=== PATIENT | female | born 1935 | race Caucasian/White ===

== ENCOUNTER 2018-09-12 18:40 | Emergency (ER) | payer OTHER ==
[~2018-09-12] VITALS: Ht 157.5 cm; Wt 81.7 kg
[~2018-09-12 18:40] MED LIST: ATEN25 PO; Aspirin EC81 MG PO; CALCAVITDA PO; CHOL10002 PO; Cyclobenzaprine5 MG PO; FISH1000 PO; LOVA40 PO; Lovastatin20 MG PO; POLY17UD PO; Synthroid25 MCG; TRIHYD253B PO; TRIHYD5075 PO
--- NOTE | 2018-09-12 21:53 | NUR ---
FROM ER TO [facility] ADMISSION STARTED FOR PROCEDURE. AT BEDSIDE
--- NOTE | 2018-09-12 22:03 | NUR ---
09/12/18 2203 Manish Swann PATIENT DETERMINED TO BE ASA APPROPRIATE FOR PROPOFOL SEDATION PRIOR TO START OF PROCEDURE BY DR. Eliane Tyson Placed3-LEAD EKG REVIEWED WITH PHYSICIAN PRIOR TO START OF PROCEDURE.Patient to ENDO 1History, Chart, Medications and Allergies reviewed before start of procedure.MONITOR INTACT WITH CONTINUOUS PULSE OXIMETRY AND INTERMITTENT BP.LUNGS CLEAR T/O TO AUSCULTATION.O2 VIA N/C INTACT THROUGHOUT SEDATION/PROCEDURE. PATIENT STATES POST-PROCEDURE RIDE HOME HAS BEEN ARRANGED.
--- NOTE | 2018-09-12 22:48 | NUR ---
discharged at this time with all belonings and discharge instructions.
== END 2018-09-12 21:48 | disposition other institution (70) ==
LOC: ER 18:40
DX: T18.108A Unspecified foreign body in esophagus causing other injury, initial encounter (principal); Z87.891 Personal history of nicotine dependence; Z79.899 Other long term (current) drug therapy; Z88.8 Allergy status to other drugs, medicaments and biological substances
CPT/HCPCS: 70360; 99284-25; J2704; J7120

== ENCOUNTER → 2019-01-09 | Outpatient (CLI) | payer OTHER | END | disposition home or self-care (01) | LOC: LAB 09:16 → LAB SHORT 09:16 | DX: N39.0 Urinary tract infection, site not specified (principal) | CPT/HCPCS: 87077; 87086; 87186 ==

== ENCOUNTER → 2019-02-10 | Outpatient (CLI) | payer OTHER | END | disposition home or self-care (01) | LOC: LAB SHORT 13:22 → LAB 13:22 | DX: R39.198 Other difficulties with micturition (principal) | CPT/HCPCS: 87086 ==

== ENCOUNTER → 2019-12-30 | Outpatient (CLI) | payer OTHER | LOC: LAB SHORT 13:09 → LAB EV 13:09 | DX: L29.3 Anogenital pruritus, unspecified (principal) | CPT/HCPCS: 87070; 87205 ==

== ENCOUNTER → 2020-12-12 | Outpatient (CLI) | payer OTHER | END | disposition home or self-care (01) | LOC: LAB 15:30 → LAB SHORT 15:30 → LAB FUT 12-12 16:55 | DX: N39.0 Urinary tract infection, site not specified (principal) | CPT/HCPCS: 87086 ==

== ENCOUNTER → 2021-09-03 | Outpatient (CLI) | payer OTHER | END | disposition home or self-care (01) | LOC: LAB 18:35 → LAB SHORT 18:35 | DX: N30.01 Acute cystitis with hematuria (principal) | CPT/HCPCS: 87077; 87086; 87186 ==